=== PATIENT | male | born 1970 ===

== ENCOUNTER 2021-01-18 17:34 | Emergency (ER) | payer SELFPAY ==
--- NOTE | ~2021-01-18 | XR_ITS ---
XR tibia fibula RT 2V DATE: 01/18/2021 17:51 INDICATION: Injury, pain TECHNIQUE: AP and lateral views COMPARISON: None FINDINGS: No fracture or dislocation, periosteal reaction or bone destruction. Alignment is intact at the knee and ankle joints. IMPRESSION: Negative Reviewed, dictated and finalized at location A. IMPRESSION: Negative
[2021-01-18 19:08] VITALS: BP 100/42; PULSE 77; RESP 14; TEMP 37.2; O2SAT 100
--- NOTE | 2021-01-18 19:21 | ED.LOWEXIN ---
HPI - Extremity Injury (Lower) General Chief Complaint: Extremity Injury, Lower Stated Complaint: R LOWER LEG INJURY Time Seen by Provider: 01/18/21 19:21 Source: patient Mode of arrival: ambulatory Limitations: no limitations History of Present Illness HPI Narrative: Patient is a 50-year-old male who presents for evaluation of right ankle injury. Patient was lifting up a concrete segment of his septic tank when he lost his balance, causing this to injure his right ankle. Patient denies head trauma or loss of consciousness. He reports dull, aching pain at the right ankle but he has been ambulatory. He is able to bear weight on this extremity. He does report a superficial abrasion overlying the right ankle. He denies any weakness or numbness. No back pain or hip pain. Related Data Home Medications Medication Instructions Recorded Confirmed No Home Medications 06/15/20 06/15/20 Allergies Allergy/AdvReac Type Severity Reaction Status Date / Time No Known Allergies Allergy Verified 01/18/21 19:37 Review of Systems Review of Systems: CONSTITUTIONAL: Denies fever CARDIOVASCULAR: Denies chest pain RESPIRATORY: Denies cough or dyspnea. GASTROINTESTINAL: Denies abdominal pain SKIN: Denies rash MUSCULOSKELETAL: Denies back pain, reports right ankle pain NEUROLOGIC: Denies headache PMFSH Past Medical History Medical History BMI 27.0-27.9,adult Social History Social History Smoking status: Former smoker Gender identity (if verbalized by the patient): Male Exam Narrative: GENERAL: Awake, alert, conversant HEAD: Normocephalic, atraumatic. EYES: PERRLA and EOMI. ENT: Nares clear, no rhinorrhea or epistaxis. Mucous membranes moist. NECK: Supple. CHEST: No respiratory distress, breathing even and non labored HEART: Regular rate, sinus rhythm ABDOMEN:Non distended, non tender EXTREMITIES: Decreased active ROM secondary to pain. Pt with intact flexion and extension. Posterior tibialis pulse 2+. Mild tenderness at the medial and lateral malleolus. Pt able to bear weight. Intact distal sensation. SKIN: Warm, dry, no rash. NEURO:No focal deficits. Alert and oriented x3 Course Vital Signs Vital signs: Vital Signs Temperature 37.2 C 01/18/21 19:08 Pulse Rate 77 01/18/21 19:08 Respiratory Rate 14 01/18/21 19:08 Blood Pressure 100/42 L 01/18/21 19:08 Pulse Oximetry 100 01/18/21 19:08 Temperature 37.2 C 01/18/21 19:08 Pulse Rate 77 01/18/21 19:08 Respiratory Rate 14 01/18/21 19:08 Blood Pressure 100/42 L 01/18/21 19:08 Pulse Oximetry 100 01/18/21 19:08 MDM - Extremity Injury (Lower) MDM Narrative Medical decision making narrative: Patient with negative imaging of tibia/fibula, right ankle. No evidence of dislocation or acute osseous abnormality. Patient is neurovascularly intact and ambulatory. He was advised to continue rest, ice, elevating the extremity, anti-inflammatories for pain. He was advised to have repeat imaging within the next 10 to 12 days if symptoms persist. Differential Diagnosis Differential diagnosis: Likely ankle sprain and strain, fracture of toe and ankle fracture Imaging Data Radiologist's impression: ITS Impressions Tibia/Fibula X-Ray 01/18/21 17:58 IMPRESSION: Negative Discharge Plan Discharge Clinical Impression: Ankle sprain and strain Patient Disposition: Home, Self-Care Condition: Stable Instructions: Ankle Sprain (ED) Additional Instructions: Your x-ray of your ankle, tibia and fibula are negative for fracture or dislocation. If your pain persist, please have repeat imaging within the next 10 to 14 days. You may contact your primary care physician's office for follow-up. Please rest, ice and elevate the extremity as much as possible. For pain, you may take Tylenol 500 mg - 1000 mg every 8 hours,
== END 2021-01-18 19:49 | disposition home or self-care (01) ==
LOC: ANHED 19:37
PROVIDERS: Emergency Provider Emergency Medicine; PCP Family Medicine
DX: S93.401A Sprain of unspecified ligament of right ankle, initial encounter (principal); S96.911A Strain of unspecified muscle and tendon at ankle and foot level, right foot, initial encounter; Z87.891 Personal history of nicotine dependence; W20.8XXA Other cause of strike by thrown, projected or falling object, initial encounter
CPT/HCPCS: 73590; 99283